=== PATIENT | male | born 1970 ===

== ENCOUNTER 2023-11-01 09:12 | Day surgery (SDC) | payer OTHER ==
[~2023-11-01] VITALS: Ht 182.9 cm; Wt 106.6 kg
[~2023-11-01 09:12] MED LIST: GLIMEPIRIDE1 MG; LOSARTAN-HCTZ1 EAC1 PO; METFORMIN HCL500 M3 PO; NORVASC2.5 M1 PO
[2023-11-01] MEDS ORDERED: TRAM1TAB98 PO (12:13)
[2023-11-01] MEDS ORDERED: COLACE100 MG PO (12:13)
[2023-11-01] MEDS ORDERED: METRONIDAZOLE/SODIUM CHLORIDE 500 MG/100 ML PIGGYBACK IV ONE (12:26)
[2023-11-01] MEDS ORDERED: LIDOCAINE HCL 1%/EPINEPHRINE 20ML VIAL IJ ONE (12:26)
[2023-11-01] MEDS ORDERED: CEFTRIAXONE SODIUM 2,000 MG VIAL ONE (12:26)
[2023-11-01] MEDS ORDERED: BUPIVACAINE HCL/Mpf 0.5% 10ML VIAL ONE (12:26)
[2023-11-01] MEDS ORDERED: POVIDONE-IODINE 118 ML BOTT TOP ONE (12:29)
[2023-11-01] MEDS ORDERED: DIBUCAINE 30 GM TUBE ONE (12:30)
[2023-11-01] MEDS ORDERED: HEMOSTATIC MATRIX 1 KIT KIT TOP ONE (13:22)
== END 2023-11-01 18:15 | disposition home or self-care (01) ==
LOC: CIR.AMB 09:12
PROVIDERS: ATTEND Surgery
DX: D12.9 Benign neoplasm of anus and anal canal (principal); K62.89 Other specified diseases of anus and rectum; A63.0 Anogenital (venereal) warts; E11.9 Type 2 diabetes mellitus without complications; I10 Essential (primary) hypertension